=== PATIENT | female | born 1980 | race Caucasian/White ===

== ENCOUNTER 2017-10-28 20:28 | Emergency (ER) | payer BC ==
[~2017-10-28] VITALS: Ht 175.3 cm; Wt 70.5 kg
[2017-10-28] MEDS ORDERED: LIPITOR20 MG PO (20:53)
[2017-10-28] MEDS ORDERED: BUPROPION HCL100 MG PO (20:53)
[2017-10-28 20:57] VITALS: Ht 175.3 cm; Wt 70.5 kg
[2017-10-28] MEDS ORDERED: MEDROL DOSE PACK4 MG PO (22:44)
[2017-10-28] MEDS ORDERED: ROBAXIN500 MG PO (22:44)
[2017-10-28 23:01] VITALS: BP 122/81
== END 2017-10-28 23:02 | disposition home or self-care (01) ==
LOC: D.ER 20:28
DX: M54.5 Low back pain (principal); F17.200 Nicotine dependence, unspecified, uncomplicated